=== PATIENT | male | born 1975 | race Caucasian/White ===

== ENCOUNTER → 2017-02-24 | Outpatient (CLI) | payer OTHER | LOC: EMI 10:01 | DX: M25.511 Pain in right shoulder (principal); M85.411 Solitary bone cyst, right shoulder | CPT/HCPCS: 73221 ==

== ENCOUNTER 2021-01-03 21:46 | Emergency (ER) | payer BC ==
[2021-01-03 22:37] LABS: HEMOGLOBIN 15.8 gm/dl (14.0-17.5); RED BLOOD COUNT 5.19 M/UL (4.20-5.50); WHITE BLOOD COUNT 9.8 K/UL (4.5-11.0)
[2021-01-03 22:55] LABS: BUN/CREATININE RATIO 11 (0-10)
[2021-01-04] MEDS ORDERED: ASPIRIN CHEWABL81 MG PO (02:51)
== END 2021-01-04 03:15 | disposition home or self-care (01) ==
LOC: ER1 21:46
PROVIDERS: Family Medicine
DX: R07.89 Other chest pain (principal); I10 Essential (primary) hypertension; I48.91 Unspecified atrial fibrillation
CPT/HCPCS: 71045; 80053; 82550; 82553; 83874; 84484; 85025; 93005; 96374; 99285; J1885; J7030

== ENCOUNTER 2021-11-14 21:26 | Emergency (ER) | payer BC ==
[~2021-11-14 21:26] MED LIST: ASPIRIN CHEWABL81 MG PO
[2021-11-14 21:57] LABS: HEMOGLOBIN 16.3 gm/dl (14.0-17.5); RED BLOOD COUNT 5.34 M/UL (4.20-5.50); WHITE BLOOD COUNT 11.3 K/UL (4.5-11.0)
[2021-11-14 22:41] LABS: BUN/CREATININE RATIO 12 (0-10)
== END 2021-11-15 02:16 | disposition home or self-care (01) ==
LOC: ER1 21:26
PROVIDERS: Family Medicine
DX: R07.9 Chest pain, unspecified (principal); I48.91 Unspecified atrial fibrillation; I10 Essential (primary) hypertension; E07.9 Disorder of thyroid, unspecified
CPT/HCPCS: 71046; 80053; 82550; 82553; 83735; 83874; 84484; 85025; 93005; 99285

== ENCOUNTER → 2022-05-26 | Outpatient (CLI) | payer BC | LOC: EMI 16:23 | DX: M25.511 Pain in right shoulder (principal); M67.813 Other specified disorders of tendon, right shoulder; M94.8X1 Other specified disorders of cartilage, shoulder | CPT/HCPCS: 73221 ==

== ENCOUNTER 2022-07-10 14:43 | Emergency (ER) | payer BC | END 2022-07-10 17:09 | disposition home or self-care (01) | LOC: ER1 14:43 | DX: I48.91 Unspecified atrial fibrillation (principal); R51.9 Headache, unspecified | CPT/HCPCS: 71045; 99283 ==